=== PATIENT | male | born 1980 | race Hispanic/Latino ===

== ENCOUNTER → 2024-12-22 | Outpatient (CLI) | payer OTHER ==
--- NOTE | 2024-12-23 09:09 | HMCIMG ---
EXAMINATION: SPECTRAL DOPPLER ULTRASOUND EXAMINATION OF THE BILATERAL LOWER EXTREMITY VEINS. CLINICAL HISTORY: Swelling, mass, and lump. COMPARISON: None provided. TECHNIQUE: Real-time ultrasound scan of the veins of the bilateral lower extremity with color Doppler flow, spectral waveform analysis and compression. FINDINGS: DEEP VEINS: The common femoral, superficial femoral, popliteal, and posterior tibial veins are echolucent and compressible. There is normal color Doppler flow throughout. The visualized calf veins appear patent. SUPERFICIAL VEINS: The visualized greater saphenous veins are patent and compressible. SOFT TISSUES: No popliteal fossa cyst. There is an enlarged lymph node that measures 4.7 x 2.8 cm in the right groin. Hilar echoes are maintained. No increased vascularity. IMPRESSION: No deep venous thrombosis evident in the bilateral lower extremity. Right Inguinal lymphadenopathy. /[place]
== END | disposition home or self-care (01) ==
LOC: RAH 12:47
PROVIDERS: ATTEND Family Medicine
DX: I83.893 Varicose veins of bilateral lower extremities with other complications (principal); R22.41 Localized swelling, mass and lump, right lower limb
CPT/HCPCS: 93970